=== PATIENT | female | born 1990 | race African-American/Black ===

== ENCOUNTER 2017-03-05 20:31 | Emergency (ER) | payer MEDICAID ==
[~2017-03-05] VITALS: Ht 157.5 cm; Wt 73.0 kg
[2017-03-05] MEDS ORDERED: KETOROLAC 60MG/2ML VIAL IM ONE (23:00)
[2017-03-05 23:21] LABS: BASOPHILS % 0.3 % (0.0-2.0); EOSINOPHILS % 0.1 % (0.0-5.0); HEMATOCRIT. 37.6 % (36.0-48.0); HEMOGLOBIN. 12.8 g/dL (12.0-16.0); LYMPHOCYTES % 9.3 % (20.0-50.0); MEAN CORPUSCULAR HEMOGLOBIN 31.5 pg (28.0-32.0); MEAN CORPUSCULAR HGB CONC 33.9 g/dL (31.0-37.0); MEAN CORPUSCULAR VOLUME 92.8 fL (81.0-99.0); MEAN PLATELET VOLUME 10.4 fl (7.4-10.4); MONOCYTES % 6.8 % (2.0-8.0); NEUTROPHILS % 83.5 % (40.0-76.0); PLATELET 192 x1000/uL (130-400); RED BLOOD CELL COUNT 4.05 mill/uL (4.2-5.4); RED CELL DISTRIBUTION WIDTH 13.1 % (11.6-14.6); WHITE BLOOD COUNT 7.3 x1000/uL (4.5-11.0)
[2017-03-05 23:39] LABS: ALANINE AMINOTRANSFERASE 24 IU/L (13-61); ALBUMIN 3.7 g/dL (3.4-5.0); ANION GAP 12; CALCIUM 8.7 mg/dL (8.5-10.1); CARBON DIOXIDE 26 mEq/L (21-32); CHLORIDE 103 mEq/L (98-107); INDEX HEMOLYSI 1 (1-3); INDEX ICTERIC 1 (1-4); INDEX LIPEMIC 1 (1-3); UREA NITROGEN BLOOD 11 mg/dL (7-21); eGFR > 60 mL/min (>60)
[2017-03-05 23:49] LABS: CLARITY URINE CLEAR (CLEAR); COLOR URINE YELLOW (YELLOW); GLUCOSE URINE NEGATIVE (NEGATIVE); KETONES URINE 3+ (NEGATIVE); LEUKOCYTE ESTERASE URINE NEGATIVE (NEGATIVE); NITRITE URINE NEGATIVE (NEGATIVE); OCCULT BLOOD URINE NEGATIVE (NEGATIVE); PROTEIN URINE NEGATIVE (NEGATIVE); SPECIFIC GRAVITY URINE 1.028 (1.005-1.030)
[2017-03-05 23:50] VITALS: BP 142/88
== END 2017-03-06 00:05 | disposition home or self-care (01) ==
LOC: ER 22:32
DX: B34.9 Viral infection, unspecified (principal)
CPT/HCPCS: 36415; 80053; 81003; 81025; 85025; 96372; 99284; J1885

== ENCOUNTER 2017-05-29 08:58 | Emergency (ER) | payer OTHER ==
[~2017-05-29] VITALS: Ht 162.6 cm; Wt 65.0 kg
[2017-05-29] MEDS ORDERED: SODIUM CHLORIDE 0.9% 1,000 ML IV ONE (09:35)
[2017-05-29] MEDS ORDERED: FAMOTIDINE 20MG/2ML VIAL IV STA (09:35)
[2017-05-29] MEDS ORDERED: KETOROLAC 30MG/ML VIAL IV ONE (09:45)
[2017-05-29 09:46] LABS: BASOPHILS % 0.8 % (0.0-2.0); EOSINOPHILS % 2.2 % (0.0-5.0); HEMATOCRIT. 35.8 % (36.0-48.0); HEMOGLOBIN. 12.1 g/dL (12.0-16.0); LYMPHOCYTES % 22.7 % (20.0-50.0); MEAN CORPUSCULAR HEMOGLOBIN 31.3 pg (28.0-32.0); MEAN CORPUSCULAR VOLUME 92.6 fL (81.0-99.0); MEAN PLATELET VOLUME 10.1 fl (7.4-10.4); NEUTROPHILS % 65.3 % (40.0-76.0); PLATELET 206 x1000/uL (130-400); RED BLOOD CELL COUNT 3.86 mill/uL (4.2-5.4); RED CELL DISTRIBUTION WIDTH 12.8 % (11.6-14.6)
[2017-05-29 09:57] LABS: INR 1.1; PARTIAL THROMBOPLASTIN TIME 27.9 sec (24.0-34.0); PROTHROMBIN TIME 11.9 sec
[2017-05-29 10:03] LABS: CARBON DIOXIDE 26 mEq/L (21-32); CHLORIDE 106 mEq/L (98-107); TROPONIN I < 0.02 ng/mL (0.00-0.04)
[2017-05-29 10:28] LABS: HCG SCREEN NEGATIVE
[2017-05-29 11:43] VITALS: BP 141/83
== END 2017-05-29 12:09 | disposition home or self-care (01) ==
LOC: ER 09:50
DX: G43.909 Migraine, unspecified, not intractable, without status migrainosus (principal); E87.6 Hypokalemia; R10.9 Unspecified abdominal pain; R07.9 Chest pain, unspecified; H53.149 Visual discomfort, unspecified
CPT/HCPCS: 36415; 71010; 80053; 82962; 83690; 84484; 84703; 85025; 85610; 85730; 93005; 96361; 96374; 96375; 99285; J1885; J3490; J7030; Z7610

== ENCOUNTER 2017-06-17 19:13 | Emergency (ER) | payer OTHER ==
[~2017-06-17] VITALS: Ht 157.5 cm; Wt 79.0 kg
[~2017-06-17 19:13] MED LIST: DIATR MEGLU/DIATRIZOATE SOLN 120ML ONE
[2017-06-18] MEDS ORDERED: ONDANSETRON HCL 4MG/2ML VIAL IV STA (01:17)
[2017-06-18] MEDS ORDERED: MORPHINE SULFATE 4 MG/ML CPJ (NOT FOR IM USE) IV STA (01:17)
[2017-06-18] MEDS ORDERED: SODIUM CHLORIDE 0.9% 1,000 ML IV ONE (01:17)
[2017-06-18 01:45] LABS: BASOPHILS % 1.3 % (0.0-2.0); EOSINOPHILS % 3.2 % (0.0-5.0); HEMATOCRIT. 34.2 % (36.0-48.0); HEMOGLOBIN. 11.6 g/dL (12.0-16.0); MEAN CORPUSCULAR HEMOGLOBIN 31.7 pg (28.0-32.0); MEAN CORPUSCULAR VOLUME 93.9 fL (81.0-99.0); MEAN PLATELET VOLUME 10.6 fl (7.4-10.4); MONOCYTES % 10.2 % (2.0-8.0); NEUTROPHILS % 46.3 % (40.0-76.0); PLATELET 186 x1000/uL (130-400); RED BLOOD CELL COUNT 3.64 mill/uL (4.2-5.4); RED CELL DISTRIBUTION WIDTH 12.9 % (11.6-14.6)
[2017-06-18] MEDS ORDERED: MORPHINE SULFATE 2 MG/ML CPJ (NOT FOR IM USE) IV NR (01:45)
[2017-06-18 01:54] LABS: CARBON DIOXIDE 25 mEq/L (21-32)
[2017-06-18 01:56] LABS: CHLORIDE 108 mEq/L (98-107)
[2017-06-18 02:29] LABS: CLARITY URINE CLEAR (CLEAR); COLOR URINE DARK YELLOW (YELLOW); GLUCOSE URINE NEGATIVE (NEGATIVE); KETONES URINE NEGATIVE (NEGATIVE); LEUKOCYTE ESTERASE URINE NEGATIVE (NEGATIVE); NITRITE URINE NEGATIVE (NEGATIVE); OCCULT BLOOD URINE NEGATIVE (NEGATIVE); PH URINE 5.5 (4.5-8.0); PROTEIN URINE NEGATIVE (NEGATIVE); SPECIFIC GRAVITY URINE 1.027 (1.005-1.030)
[2017-06-18 05:59] VITALS: BP 141/81
== END 2017-06-18 05:55 | disposition home or self-care (01) ==
LOC: ER 19:13
DX: R10.31 Right lower quadrant pain (principal)
CPT/HCPCS: 36415; 74176; 80053; 81003; 81025; 83690; 85025; 93005; 96361; 96374; 96375; 99285; J2270; J2405; J7030; Q9963

== ENCOUNTER 2017-11-11 08:59 | Emergency (ER) | payer OTHER ==
[~2017-11-11] VITALS: Ht 157.5 cm; Wt 67.0 kg
[2017-11-11 09:23] VITALS: BP 139/90
== END 2017-11-11 12:26 | disposition left against medical advice (07) ==
LOC: ER 08:59
DX: R05 Cough (principal); R06.02 Shortness of breath; R50.9 Fever, unspecified; Z53.21 Procedure and treatment not carried out due to patient leaving prior to being seen by health care provider

== ENCOUNTER 2017-11-24 08:02 | Emergency (ER) | payer OTHER ==
[~2017-11-24] VITALS: Ht 157.5 cm; Wt 63.0 kg
[2017-11-24] MEDS ORDERED: PNV1TABL76 PO (08:16)
[2017-11-24 11:45] LABS: BASOPHILS % 0.7 % (0.0-2.0); EOSINOPHILS % 2.2 % (0.0-5.0); HEMATOCRIT. 33.9 % (36.0-48.0); HEMOGLOBIN. 11.2 g/dL (12.0-16.0); LYMPHOCYTES % 25.3 % (20.0-50.0); MEAN CORPUSCULAR HEMOGLOBIN 31.2 pg (28.0-32.0); MEAN PLATELET VOLUME 10.5 fl (7.4-10.4); MONOCYTES % 10.3 % (2.0-8.0); NEUTROPHILS % 61.5 % (40.0-76.0); PLATELET 209 x1000/uL (130-400); RED CELL DISTRIBUTION WIDTH 14.4 % (11.6-14.6)
[2017-11-24 11:48] LABS: CLARITY URINE TURBID (CLEAR); COLOR URINE YELLOW (YELLOW); KETONES URINE 1+ (NEGATIVE); LEUKOCYTE ESTERASE URINE TRACE (NEGATIVE); NITRITE URINE NEGATIVE (NEGATIVE); OCCULT BLOOD URINE NEGATIVE (NEGATIVE); PH URINE 7.5 (4.5-8.0); PROTEIN URINE NEGATIVE (NEGATIVE)
[2017-11-24 11:57] LABS: CHLORIDE 106 mEq/L (98-107)
[2017-11-24 12:07] LABS: B-HCG QUANTITATIVE 92432 mIU/mL (<3)
[2017-11-24] MEDS ORDERED: SODIUM CHLORIDE 0.9% 1,000 ML IV ONE (12:55)
[2017-11-24 16:12] VITALS: BP 130/76
[2017-11-28 04:11] LABS: INFLUENZA B AB CF Negative (Neg:<1:8)
== END 2017-11-24 16:16 | disposition home or self-care (01) ==
LOC: ER 08:02
DX: O26.891 Other specified pregnancy related conditions, first trimester (principal); O23.41 Unspecified infection of urinary tract in pregnancy, first trimester; B34.9 Viral infection, unspecified; K82.4 Cholesterolosis of gallbladder; O20.9 Hemorrhage in early pregnancy, unspecified; O26.611 Liver and biliary tract disorders in pregnancy, first trimester; O98.511 Other viral diseases complicating pregnancy, first trimester; O99.511 Diseases of the respiratory system complicating pregnancy, first trimester; Z3A.01 Less than 8 weeks gestation of pregnancy
CPT/HCPCS: 36415; 76705; 76801; 76817; 80053; 81001; 81025; 83690; 84702; 85025; 86710; 87804; 96360; 96361; 99285; J7030; Z7610

== ENCOUNTER 2017-12-06 10:52 | Emergency (ER) | payer OTHER, MEDICAID ==
[~2017-12-06] VITALS: Ht 157.5 cm; Wt 68.0 kg
[~2017-12-06 10:52] MED LIST changes: -DIATR MEGLU/DIATRIZOATE SOLN 120ML ONE; +PNV1TABL76 PO
[2017-12-06] MEDS ORDERED: ACETAMINOPHEN 325MG TABLET PO PRN (14:30)
[2017-12-06 14:42] LABS: CLARITY URINE CLOUDY (CLEAR); COLOR URINE YELLOW (YELLOW); KETONES URINE NEGATIVE (NEGATIVE); LEUKOCYTE ESTERASE URINE NEGATIVE (NEGATIVE); NITRITE URINE NEGATIVE (NEGATIVE); OCCULT BLOOD URINE NEGATIVE (NEGATIVE); PROTEIN URINE NEGATIVE (NEGATIVE)
[2017-12-06 16:00] LABS: BASOPHILS % 0.4 % (0.0-2.0); EOSINOPHILS % 3.5 % (0.0-5.0); HEMATOCRIT. 34.5 % (36.0-48.0); HEMOGLOBIN. 11.7 g/dL (12.0-16.0); LYMPHOCYTES % 21.1 % (20.0-50.0); MEAN CORPUSCULAR HEMOGLOBIN 31.9 pg (28.0-32.0); MEAN CORPUSCULAR VOLUME 93.8 fL (81.0-99.0); MEAN PLATELET VOLUME 10.7 fl (7.4-10.4); PLATELET 190 x1000/uL (130-400); RED BLOOD CELL COUNT 3.67 mill/uL (4.2-5.4); RED CELL DISTRIBUTION WIDTH 14.8 % (11.6-14.6)
[2017-12-06 16:18] LABS: CHLORIDE 102 mEq/L (98-107)
[2017-12-06 16:29] LABS: B-HCG QUANTITATIVE 110130 mIU/mL (<3)
[2017-12-06 18:11] VITALS: BP 126/79
== END 2017-12-06 18:14 | disposition home or self-care (01) ==
LOC: ER 13:31
DX: O20.0 Threatened abortion (principal); O21.0 Mild hyperemesis gravidarum; O26.891 Other specified pregnancy related conditions, first trimester; B34.9 Viral infection, unspecified; Z3A.09 9 weeks gestation of pregnancy
CPT/HCPCS: 36415; 76801; 80053; 81003; 81025; 84702; 85025; 86850; 86900; 87804; 99285

== ENCOUNTER 2018-01-14 07:56 | Emergency (ER) | payer OTHER, MEDICAID ==
[~2018-01-14] VITALS: Ht 157.5 cm; Wt 64.0 kg
[2018-01-14] MEDS ORDERED: SODIUM CHLORIDE 0.9% 1,000 ML IV ONE (08:26)
[2018-01-14] MEDS ORDERED: ONDANSETRON HCL 4MG/2ML VIAL IV STA (08:26)
[2018-01-14] MEDS ORDERED: FAMOTIDINE 20MG/2ML VIAL IV ONE (08:30)
[2018-01-14 08:37] LABS: KETONES URINE 1+ (NEGATIVE); LEUKOCYTE ESTERASE URINE NEGATIVE (NEGATIVE); NITRITE URINE NEGATIVE (NEGATIVE); OCCULT BLOOD URINE NEGATIVE (NEGATIVE); PROTEIN URINE NEGATIVE (NEGATIVE); SPECIFIC GRAVITY URINE 1.018 (1.005-1.030); UROBILINOGEN URINE 0.2 E.U./dL (0.2-1.0)
[2018-01-14 08:39] LABS: COLOR URINE YELLOW (YELLOW)
[2018-01-14 08:40] LABS: CLARITY URINE CLEAR (CLEAR)
[2018-01-14 08:47] LABS: BASOPHILS % 0.8 % (0.0-2.0); EOSINOPHILS % 1.1 % (0.0-5.0); HEMATOCRIT. 32.5 % (36.0-48.0); HEMOGLOBIN. 11.2 g/dL (12.0-16.0); LYMPHOCYTES % 20.7 % (20.0-50.0); MEAN CORPUSCULAR HEMOGLOBIN 32.3 pg (28.0-32.0); MEAN CORPUSCULAR VOLUME 93.7 fL (81.0-99.0); MEAN PLATELET VOLUME 10.4 fl (7.4-10.4); MONOCYTES % 8.4 % (2.0-8.0); PLATELET 174 x1000/uL (130-400); RED BLOOD CELL COUNT 3.47 mill/uL (4.2-5.4)
[2018-01-14 08:56] LABS: INR 1.1; PARTIAL THROMBOPLASTIN TIME 27.5 sec (23.4-31.0); PROTHROMBIN TIME 11.1 sec (9.4-11.6)
[2018-01-14 08:58] LABS: CHLORIDE 105 mEq/L (98-107)
[2018-01-14 09:19] LABS: B-HCG QUANTITATIVE 77767 mIU/mL (<3)
[2018-01-14 10:45] VITALS: BP 111/77
[2018-01-14 11:16] LABS: *AMPHETAMINES SCREEN URINE NEGATIVE (NEGATIVE); *BARBITURATES SCREEN URINE NEGATIVE (NEGATIVE); *BENZODIAZEPINES SCREEN URINE NEGATIVE (NEGATIVE); *COCAINE SCREEN URINE NEGATIVE (NEGATIVE); METHADONE URINE SCREEN NEGATIVE (NEGATIVE); OPIATES URINE SCREEN NEGATIVE (NEGATIVE)
[2018-01-14 11:17] LABS: CANNABINOID URINE SCREEN NEGATIVE (NEGATIVE); PHENCYCLIDINE URINE SCREEN NEGATIVE (NEGATIVE)
== END 2018-01-14 11:53 | disposition home or self-care (01) ==
LOC: ER 08:13
DX: O26.892 Other specified pregnancy related conditions, second trimester (principal); O26.612 Liver and biliary tract disorders in pregnancy, second trimester; K82.4 Cholesterolosis of gallbladder; Z3A.15 15 weeks gestation of pregnancy
CPT/HCPCS: 36415; 76705; 76805; 80053; 80305; 81003; 81025; 83690; 84702; 85025; 85610; 85730; 86850; 86900; 86901; 87077; 87086; 96361; 96374; 96375; 99285; J2405; J3490; J7030; Z7610; 99291

== ENCOUNTER 2018-04-01 13:39 | Observation (INO) | payer OTHER ==
[~2018-04-01] VITALS: Ht 157.5 cm; Wt 70.8 kg
[~2018-04-01 13:39] MED LIST changes: +ASPI-1159 MT; +LABE100T MT
[2018-04-01] MEDS ORDERED: CITRIC ACID/SODIUM CITRATE SOLN 30ML UDC PO NR (14:45)
== END 2018-04-01 15:05 | disposition home or self-care (01) ==
LOC: L&D 13:39
PROVIDERS: ADMIT Obstetrics & Gynecology; ATTEND Obstetrics & Gynecology
DX: O26.892 Other specified pregnancy related conditions, second trimester (principal); R10.11 Right upper quadrant pain; Z3A.26 26 weeks gestation of pregnancy
CPT/HCPCS: 99281; G0378

== ENCOUNTER 2018-04-08 11:46 | Emergency (ER) | payer OTHER ==
[~2018-04-08] VITALS: Ht 157.5 cm; Wt 71.1 kg
[2018-04-08 12:16] VITALS: BP 129/74
== END 2018-04-08 16:32 | disposition home or self-care (01) ==
LOC: ER 12:51
DX: S13.4XXA Sprain of ligaments of cervical spine, initial encounter (principal); V43.52XA Car driver injured in collision with other type car in traffic accident, initial encounter; Y93.9 Activity, unspecified; Y92.410 Unspecified street and highway as the place of occurrence of the external cause
CPT/HCPCS: 99281

== ENCOUNTER 2018-05-14 07:50 | Emergency (ER) | payer OTHER ==
[~2018-05-14] VITALS: Ht 160 cm; Wt 73.0 kg
[~2018-05-14 07:50] MED LIST changes: -LABE100T MT; +LABE100T5 MT
[2018-05-14 14:31] VITALS: BP 123/69
== END 2018-05-14 14:33 | disposition home or self-care (01) ==
LOC: ER 08:22
DX: O91.113 Abscess of breast associated with pregnancy, third trimester (principal); Z3A.32 32 weeks gestation of pregnancy; Z79.82 Long term (current) use of aspirin
CPT/HCPCS: 76641; 99284

== ENCOUNTER 2018-06-08 22:18 | Emergency (ER) | payer OTHER ==
[~2018-06-08] VITALS: Ht 157.5 cm; Wt 71.0 kg
[2018-06-09] MEDS ORDERED: DIPHENHYDRAMINE 50MG/ML VIAL IV ONE (00:45)
[2018-06-09] MEDS ORDERED: PROCHLORPERAZINE 10MG/2ML VIAL IM ONE (00:45)
[2018-06-09] MEDS ORDERED: MAGNESIUM 2 G PREMIX 50 ML IV ONE (00:45)
[2018-06-09] MEDS ORDERED: KETOROLAC 30MG/ML VIAL IV ONE (00:45)
[2018-06-09] MEDS ORDERED: HYDRALAZINE 20MG/ML VIAL IV ONE (01:45)
[2018-06-09 02:03] LABS: HEMATOCRIT 37.7 % (36.0-48.0); HEMOGLOBIN 12.8 g/dL (12.0-16.0); MEAN CORPUSCULAR HEMOGLOBIN 33.6 pg (28.0-32.0); MEAN CORPUSCULAR VOLUME 99.2 fL (81.0-99.0); PLATELET 235 x1000/uL (130-400); RED CELL DISTRIBUTION WIDTH 13.4 % (11.6-14.6)
[2018-06-09 02:04] LABS: CHLORIDE 105 mEq/L (98-107)
[2018-06-09 02:06] LABS: CLARITY URINE CLEAR (CLEAR); COLOR URINE YELLOW (YELLOW); KETONES URINE NEGATIVE (NEGATIVE); LEUKOCYTE ESTERASE URINE TRACE (NEGATIVE); NITRITE URINE NEGATIVE (NEGATIVE); OCCULT BLOOD URINE 3+ (NEGATIVE); PROTEIN URINE NEGATIVE (NEGATIVE)
[2018-06-09 02:07] LABS: PROTHROMBIN TIME 10.4 sec (9.1-11.1)
[2018-06-09] MEDS ORDERED: CEFTRIAXONE 1 G PREMIX 50 ML IV SCH (02:57)
[2018-06-09 03:40] VITALS: BP 158/99
== END 2018-06-09 03:43 | disposition home or self-care (01) ==
LOC: ER 22:18
DX: N39.0 Urinary tract infection, site not specified (principal); I10 Essential (primary) hypertension; Z79.82 Long term (current) use of aspirin
CPT/HCPCS: 36415; 80053; 81003; 85027; 85610; 85730; 86850; 86900; 86901; 96365; 96367; 96372; 96375; 99284; J0360; J0696; J0780; J1200; J1885; J3475

== ENCOUNTER 2018-10-20 15:52 | Emergency (ER) | payer OTHER ==
[~2018-10-20] VITALS: Ht 157.5 cm; Wt 66.0 kg
[2018-10-20] MEDS ORDERED: DEXAMETHASONE 4MG/ML 1ML VIAL IM ONE (17:00)
[2018-10-20] MEDS ORDERED: PENICILLIN G BENZATHINE 1,200,000 UNITS/2ML SYR IM ONE (17:00)
[2018-10-20] MEDS ORDERED: ACETAMINOPHEN 650MG/20.3ML UDC PO ONE (17:00)
[2018-10-20] MEDS: KETOROLAC 60MG/2ML VIAL IM ONE ×2 (17:25→17:39)
[2018-10-20 17:50] VITALS: BP 137/100
== END 2018-10-20 17:54 | disposition home or self-care (01) ==
LOC: ER 15:52
DX: J03.80 Acute tonsillitis due to other specified organisms (principal); B96.89 Other specified bacterial agents as the cause of diseases classified elsewhere; Z79.82 Long term (current) use of aspirin
CPT/HCPCS: 81025; 96372; 99283; J0561; J1100; J1885

== ENCOUNTER 2019-04-05 14:43 | Emergency (ER) | payer OTHER ==
[~2019-04-05] VITALS: Ht 157.5 cm; Wt 75.0 kg
[~2019-04-05 14:43] MED LIST changes: -ASPI-1159 MT; +ASPI-1393 MT
[2019-04-05 15:10] VITALS: BP 16/105
== END 2019-04-05 16:00 | disposition left against medical advice (07) ==
LOC: ER 14:43
DX: R10.9 Unspecified abdominal pain (principal); Z53.21 Procedure and treatment not carried out due to patient leaving prior to being seen by health care provider

== ENCOUNTER 2019-04-08 22:14 | Emergency (ER) | payer OTHER ==
[~2019-04-08] VITALS: Ht 195.6 cm; Wt 61.0 kg
[2019-04-09] MEDS ORDERED: SODIUM CHLORIDE 0.9% 1,000 ML IV ONE (01:51)
[2019-04-09] MEDS ORDERED: ONDANSETRON HCL 4MG/2ML INJ IV STA (01:51)
[2019-04-09 02:44] LABS: BASOPHILS % 0.3 % (0.0-2.0); HEMATOCRIT. 35.4 % (36.0-48.0); HEMOGLOBIN. 12.2 g/dL (12.0-16.0); LYMPHOCYTES % 16.6 % (20.0-50.0); MEAN CORPUSCULAR HEMOGLOBIN 32.5 pg (28.0-32.0); MEAN CORPUSCULAR VOLUME 94.4 fL (81.0-99.0); MONOCYTES % 7.7 % (2.0-8.0); NEUTROPHILS % 74.4 % (40.0-76.0); PLATELET 185 x1000/uL (130-400); RED BLOOD CELL COUNT 3.75 mill/uL (4.2-5.4); RED CELL DISTRIBUTION WIDTH 13.5 % (11.6-14.6)
[2019-04-09 02:48] LABS: CHLORIDE 107 mEq/L (98-107)
[2019-04-09] MEDS ORDERED: KETOROLAC 30MG/ML VIAL IV ONE ×2 (04:00→05:15)
[2019-04-09] MEDS ORDERED: MORPHINE SULFATE 4 MG/ML CPJ (NOT FOR IM USE) IV ONE (05:15)
[2019-04-09 07:10] VITALS: BP 133/90
== END 2019-04-09 07:18 | disposition home or self-care (01) ==
LOC: ER 22:56
DX: R10.31 Right lower quadrant pain (principal); R11.0 Nausea
CPT/HCPCS: 36415; 71045; 74021; 80053; 81025; 83880; 84484; 85025; 93005; 96374; 96375; 99284; J1885; J2405; J7030; Z7610; J2270

== ENCOUNTER 2021-08-23 10:00 | Emergency (ER) | payer MEDICAID, OTHER ==
[~2021-08-23] VITALS: Ht 157.5 cm; Wt 79.0 kg
[~2021-08-23 10:00] MED LIST changes: +AMOX-424 MT; -ASPI-1393 MT; +ASPI-1497 MT; +CETI10TA10 MT; +IBUP-2028 MT; -PNV1TABL76 PO
[2021-08-23 10:06] VITALS: BP 140/96
[2021-08-23] MEDS ORDERED: DIPH25CA83 PO (10:32)
[2021-08-23] MEDS ORDERED: P50 PO (10:32)
== END 2021-08-23 10:42 | disposition home or self-care (01) ==
LOC: ER 10:00
DX: T78.40XA Allergy, unspecified, initial encounter (principal); X58.XXXA Exposure to other specified factors, initial encounter
CPT/HCPCS: 99283

== ENCOUNTER 2022-02-01 08:15 | Emergency (ER) | payer MEDICAID, OTHER ==
[~2022-02-01] VITALS: Ht 157.5 cm; Wt 81.0 kg
[~2022-02-01 08:15] MED LIST changes: +DIPH25CA83 PO; +P50 PO
[2022-02-01] MEDS ORDERED: AMOX-424 MT (09:15)
[2022-02-01] MEDS ORDERED: ACETAMINOPHEN 325MG TABLET PO ONE (09:30)
[2022-02-01] MEDS ORDERED: IBUPROFEN 400MG TABLET PO ONE (09:30)
[2022-02-01 09:33] VITALS: BP 136/74
== END 2022-02-01 10:03 | disposition home or self-care (01) ==
LOC: ER 08:33
DX: H92.02 Otalgia, left ear (principal); K08.89 Other specified disorders of teeth and supporting structures; I10 Essential (primary) hypertension
CPT/HCPCS: 99283

== ENCOUNTER 2024-09-29 10:20 | Emergency (ER) | payer OTHER ==
[~2024-09-29] VITALS: Ht 157.5 cm; Wt 74.0 kg
[~2024-09-29 10:20] MED LIST changes: -CETI10TA10 MT; +CETI10TA11 MT; -LABE100T5 MT; +LABE100T9 MT
[2024-09-29 10:24] VITALS: O2SAT 99
[2024-09-29 10:30] VITALS: BP 156/97; PULSE 101; RESP 18; TEMP 98.8; O2SAT 98
[2024-09-29] MEDS ORDERED: LIDO700A15 TP (12:58)
[2024-09-29] MEDS ORDERED: ACET-2708 MT (12:58)
== END 2024-09-29 14:22 | disposition home or self-care (01) ==
LOC: ER 10:20
DX: M54.2 Cervicalgia (principal); I10 Essential (primary) hypertension; Z79.82 Long term (current) use of aspirin; Z79.899 Other long term (current) drug therapy
CPT/HCPCS: 99283; Z7610 ×3